=== PATIENT | female | born 1935 | race Caucasian/White ===

== ENCOUNTER → 2019-10-25 14:05 | Outpatient (BNVA) | payer MEDICARE, OTHER, SELFPAY | PROVIDERS: Family Provider Internal Medicine; PCP Internal Medicine; Visit Provider Nurse Practitioner | DX: N39.0 Urinary tract infection, site not specified (principal) | CPT/HCPCS: 81003; 87086 ==

== ENCOUNTER 2021-04-03 10:26 | Outpatient (CLI) | payer MEDICARE, OTHER, SELFPAY ==
--- NOTE | 2021-04-03 10:38 | CT_ITS ---
WS: [id number] CT ABDOMEN PELVIS TECHNIQUE: Noncontrast CT of the abdomen and pelvis with coronal and sagittal reformatted images. CLINICAL INFORMATION: PELVIC PAIN COMPARISON: 09 10,019 DLP: 506.[address] scans at [facility] use at least one of these dose optimization techniques: automat ed exposure control; mA and/or kV adjustment per patient size (includes targeted exams where dose is matched to clinical indication); or iterative reconstruction. FINDINGS: Noncontrast liver is normal. Prior cholecystectomy. Splenic granulomas. Noncontrast spleen is normal. Normal noncontrast pancreas. Subsegmental atelectasis in the lung bases. Adrenal glands are normal. No hydronephrosis in either kidney. No obstructing renal or ureteral calcu li. 1.7 cm stable left renal cyst. Normal caliber abdominal aorta. Aortic calcification. Mild calcifi ed stenosis of the distal abdominal aorta. Normal sigmoid colon. Mild sigmoid diverticulosis. No evidence of acute diverticulitis. A few slightl y prominent loops of fluid-filled small bowel in the pelvis with air-fluid levels. No evidence of hig h-grade obstruction. No free fluid in the pelvis. Colon is decompressed. Prior hysterectomy. CT/CT abdomen pelvis wo con [id number] IMPRESSION: 1. No hydronephrosis in either kidney. No obstructing renal or ureteral calcul i. 2. No free fluid in the abdomen or pelvis. 3. A few slightly prominent loops of fluid-filled small bowel in the pelvis wi th air-fluid levels. No evidence of high-grade obstruction. Colon is decompress ed. 4. Prior cholecystectomy. 5. Stable left renal cyst. 6. Normal caliber abdominal aorta with mild stenosis in the distal abdominal a max. 7. Prior hysterectomy.
[2021-04-03 11:30] LABS: Basophils % 0.6 %; Eosinophils % 0.5 %; Hematocrit 47.7 % (37.0-47.0); Hemoglobin 15.8 g/dL (11.5-15.3); Lymphocytes # 1.7 10^3/uL (0.8-4.8); Lymphocytes % 25.7 %; Mean Corpuscular HGB Conc 33.1 g/dL (30.0-36.0); Mean Corpuscular Hemoglobin 32.2 pg (28.0-34.0); Mean Corpuscular Volume 97.3 fL (81-99); Mean Platelet Volume 9.4 fL (7.4-10.4); Monocytes # 0.4 10^3/uL (0.2-0.9); Monocytes % 6.2 %; Neutrophils # 4.28 10^3/uL (1.8-7.7); Neutrophils % 66.8 %; Nucleated Red Blood Cells % 0 %; Platelet Count 220 10^3/cmm (130-400); Red Cell Distribution Width 12.2 % (12.1-15.1); White Blood Count 6.4 10^3/uL (4.0-10.0)
[2021-04-03 11:46] LABS: Anion Gap 12.1 (5-19); Blood Urea Nitrogen 8 mg/dL (8-23); Calcium 9.4 mg/dL (8.5-10.5); Carbon Dioxide 27 mmol/L (22-29); Chloride 104 mmol/L (98-107); Glucose 105 mg/dL (65-115); Osmolality Calculated 287 mOsm/kg (285-295); Potassium 4.1 mmol/L (3.5-5.1); Sodium 139 mmol/L (136-145)
== END 2021-04-03 10:27 | disposition home or self-care (01) ==
PROVIDERS: PCP Nurse Practitioner; Visit Provider Family Medicine
DX: R10.2 Pelvic and perineal pain (principal); Z90.710 Acquired absence of both cervix and uterus; Q61.01 Congenital single renal cyst; Z90.49 Acquired absence of other specified parts of digestive tract
CPT/HCPCS: 36415; 74176; 80048; 85025

== ENCOUNTER 2021-05-25 12:32 | Emergency (ER) | payer MEDICARE, OTHER, SELFPAY ==
[2021-05-25 12:55] VITALS: BP 165/71; PULSE 62; RESP 20; TEMP 36.5; O2SAT 97; BMI 20.5
[2021-05-25 13:19] LABS: Urine Appearance Clear (CLEAR); Urine Color Yellow (Yellow)
[2021-05-25 13:20] LABS: Add Urine Culture? No; Add Urine Microscopic? YES; Bacteria Urine TRACE /hpf; Bilirubin Urine Neg (Negative); Blood Urine Neg (Negative); Glucose Urine UA Norm (Normal); Ketones Urine Negative (Negative); Leukocyte Esterase Urine Trace (Negative); Nitrate Urine Negative (Negative); Protein Urine Neg (Negative); Squamous Epithelial Cell Urine RARE /hpf (0-5); Sulfosalicylic Acid Urine Negative (Negative); Transitional Epi Cells Urine 0-4 /hpf; Urobilinogen Urine 1 mg/dL (Negative); WBC Urine 0-4 /hpf (0-5); pH Urine 8 (5-7)
--- NOTE | 2021-05-25 14:14 | ECG_ITS ---
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
[2021-05-25 14:15] LABS: Basophils % 0.4 %; Eosinophils % 0.4 %; Hematocrit 41.9 % (37.0-47.0); Hemoglobin 14.3 g/dL (11.5-15.3); Lymphocytes # 1.5 10^3/uL (0.8-4.8); Lymphocytes % 27.3 %; Mean Corpuscular HGB Conc 34.1 g/dL (30.0-36.0); Mean Corpuscular Hemoglobin 32.7 pg (28.0-34.0); Mean Corpuscular Volume 95.9 fl (81-99); Mean Platelet Volume 9.4 fL (7.4-10.4); Monocytes # 0.5 10^3/uL (0.2-0.9); Neutrophils # 3.59 10^3/uL (1.8-7.7); Neutrophils % 63.5 %; Nucleated Red Blood Cells % 0 %; Platelet Count 176 10^3/cmm (130-400); Red Blood Count 4.37 10^6/uL (4.1-5.3); Red Cell Distribution Width 12.3 % (12.1-15.1); White Blood Count 5.6 10^3/uL (4.0-10.0)
--- NOTE | 2021-05-25 14:37 | W.ED.GENADLT ---
HPI - General Adult General: Chief complaint: Nausea/Vomiting/Diarrhea Stated complaint: Nausea, No appetite Time Seen by Provider: 05/25/21 13:32 History of Present Illness: HPI narrative: Patient is an 86-year-old female with history of hypertension, anxiety, depression presenting to the emergency room with nausea/vomiting and decreased appetite over the last week. Per daughter, patient has most not eaten anything over the last week. Daughter ports that patient's depression is not well controlled. Patient tells me that she is endorsing significant sadness this week. Her 2 years ago and patient is still recovering from that. Patient denies any significant suicidal ideation. Denies any diarrhea to me today. Denies any melena hematochezia, chest pain shortness breath, palpitation. Of note, around 10 AM this morning, patient almost passed out because she was feeling lightheaded. No associated chest pain, shortness of breath, palpitation or lightheadedness. Onset:1 week ago Duration:1 week Location:home Severity: moderate Review of Systems Narrative: Constitutional: No fever, no chills. HEENT: No vision changes CV: No chest pain, no palpitations PULM: no cough, no dyspnea. GI: No abdominal pain, +N/+V/-D. +depressed appetite : No dysuria MSKEL: No muscle pain SKIN: No new rashes, no lesions. NEURO: No headache, no focal weakness. HEME: No visible bruises PSYCH: Decreased mood [facility] ED PFSH: Social History (Updated 10/25/19 @ 14:03 by Saritha Rubin LPN) Smoking and tobacco status: never smoked Female Reproductive History: Date of last menstrual period: 11/15/20 Physical Exam Narrative: EXAM NARRATIVE: Head: Atraumatic Eyes: PERRL, conjunctiva without injection ENT: Mucous membrane moist NECK: Supple, ROM intact LUNGS: LCTAB, no crackles/rhonchi CV: RRR ABDOMEN: Soft, nontender in all quadrants EXTREMITY: Normal ROM SKIN: No rash or erythema NEURO: Awake and alert, no focal motor deficits PSYCH: Normal mood and affect Course Vital Signs: Vital signs: Vital Signs Temperature 97.7 F 05/25/21 12:55 Pulse Rate 88 05/25/21 16:36 Respiratory Rate 15 05/25/21 16:36 Blood Pressure 178/88 05/25/21 16:36 Pulse Oximetry 98 05/25/21 16:36 MDM - General Adult MDM Narrative: Medical decision making narrative: 86-year-old female history of depression, anxiety hypertension presents emergency room with an episode of syncopal fall for 7-10 30 this morning the setting of decreased p.o. intake multiple stressors at home. On exam, patient is hemodynamically stable without any focal complaints. Neuro exam grossly intact. Troponin x2 within normal limit. EKG is nonischemic. Patient received IVF, Zofran, was able to tolerate p.o. without any difficulty. Suspect that this lightheadedness episode secondary to dehydration malnutrition. Patient's family reassured me that patient has a counselor for which she is planning to see on Thursday to address the grief that she is experiencing. Disposition: Discharge. Patient is given strict return precaution for any focal signs of weakness, chest pain, short of breath, any more lapses of lightheadedness, or any new or concerning complaints Lab Data: Labs: Lab Results 05/25/21 05/25/21 05/25/21 13:05 14:05 14:05 WBC 5.6 10^3/uL 10^3/ uL (4.0-10.0) RBC 4.37 10^6/uL 10^6 /uL (4.1-5.3) Hgb 14.3 g/dL g/dL (11.5-15.3) Hct 41.9 % % (37.0-47.0) MCV 95.9 fl fl (81-99) MCH 32.7 pg pg (28.0-34.0) MCHC 34.1 g/dL g/dL (30.0-36.0) RDW 12.3 % % (12.1-15.1) Plt Count 176 10^3/cmm 10^3 /cmm (130-400) MPV 9.4 fL fL (7.4-10.4) Neut % (Auto) 63.5 % % Lymph % (Auto) 27.3 % % Vance % (Auto) 8.0 % % Eos % (Auto) 0.4 % % Baso % (Auto) 0.4 % % Neut # (Auto) 3.59 10^3/uL 10^3 /uL (1.8-7.7) Lymph # (Auto) 1.5 10^3/uL 10^3/ uL (0.8-4.8) Vance # (Auto) 0.5 10^3/uL 10^3/ uL (0.2-0.9) Eos # (Auto) 0.0 10^3/uL 10^3/ uL (0.0-0.8) Baso # (Auto) 0.0 10^3/uL 10^3/ uL (0.0-0.1) Nucleated RBC % (a uto) 0 % % Nucleated RBCs # 0.0 /100WBC /100W BC Sodium 137 mmol/L mmol/L (136-145) Potassium 4.1 mmol/L mmol/L (3.5-5.1) Chloride 101 mmol/L mmol/L (98-107) Carbon Dioxide 28 mmol/L mmol/L (22-29) Anion Gap 12.1 (5-19) BUN 9 mg/dL mg/dL (8-23) Creatinine 0.7 mg/dL mg/dL (0.5-0.9) GFR Calculation Not Reportable Glucose 99 mg/dL mg/dL (65-115) Calculated Osmolal ity 283 mOsm/kg L mOs m/kg (285-295) Calcium 9.1 mg/dL mg/dL (8.5-10.5) Total Bilirubin 0.8 mg/dL mg/dL (0.15-1.2) AST 18 U/L U/L (0-32) ALT 14 U/L U/L (0-33) Alkaline Phosphata se 51 IU/L IU/L (35-105) Troponin T Baselin e Troponin T 120 Min nel Delta Troponin T Total Protein 6.6 g/dL g/dL (6.6-8.7) Albumin 3.9 g/dL g/dL (3.5-5.2) Globulin 2.7 g/dL g/dL (1.3-4.6) Lipase 77 U/L H U/L (13-60) Urine Color Yellow (Yellow) Urine Appearance Clear (CLEAR) Urine pH 8 H (5-7) Ur Specific Gravit y 1.010 (1.005-1.030) Urine Protein Neg (Negative) Urine Glucose (UA) Norm (Normal) Urine Ketones Negative (Negative) Urine Blood Neg (Negative) Urine Nitrate Negative (Negative) Urine Bilirubin Neg (Negative) Prot Sulfosalicyli c Acd Negative (Negative) Urine Urobilinogen 1 mg/dL H mg/dL (Negative) Ur Leukocyte Luma ase Trace H (Negative) Urine RBC None /hpf /hpf (0-2) Urine WBC 0-4 /hpf H /hpf (0-5) Ur Squamous Epith Cells Rare /hpf /hpf (0-5) Ur Transition Epit h Cell 0-4 /hpf /hpf Amorphous Sediment Not Reportable Urine Bacteria Trace /hpf /hpf (NONE) 05/25/21 05/25/21 14:05 15:24 WBC RBC Hgb Hct MCV MCH MCHC RDW Plt Count MPV Neut % (Auto) Lymph % (Auto) Vance % (Auto) Eos % (Auto) Baso % (Auto) Neut # (Auto) Lymph # (Auto) Vance # (Auto) Eos # (Auto) Baso # (Auto) Nucleated RBC % (a uto) Nucleated RBCs # Sodium Potassium Chloride Carbon Dioxide Anion Gap BUN Creatinine GFR Calculation Glucose Calculated Osmolal ity Calcium Total Bilirubin AST ALT Alkaline Phosphata se Troponin T Baselin e 7 ng/L ng/L (0-10) Troponin T 120 Min nel 6.93 ng/L ng/L (0-10) Delta Troponin T -0.07 ABS# L ABS# (0-10) Total Protein Albumin Globulin Lipase Urine Color Urine Appearance Urine pH Ur Specific Gravit y Urine Protein Urine Glucose (UA) Urine Ketones Urine Blood Urine Nitrate Urine Bilirubin Prot Sulfosalicyli c Acd Urine Urobilinogen Ur Leukocyte Luma ase Urine RBC Urine WBC Ur Squamous Epith Cells Ur Transition Epit h Cell Amorphous Sediment Urine Bacteria Discharge Plan Discharge Patient Disposition: Home Clinical Impression: Decrease in appetite, Light headedness Condition: Stable Prescriptions: New Zofran 4 mg tablet 4 mg PO TID PRN (Reason: nausea and vomiting) 5 Days Qty: 15 RF: 0 No Action metoprolol tartrate 25 mg tablet 25 mg PO BID RF: 0 lisinopril 10 mg tablet 10 mg PO DAILY RF: 0 alprazolam 1 mg tablet 1 mg PO DAILY RF: 0 pravastatin 40 mg tablet 40 mg PO DAILY RF: 0 aspirin [Adult Aspirin Regimen] 81 mg tablet,delayed release (DR/EC) 81 mg PO DAILY RF: 0 citalopram [Celexa] 20 mg tablet 20 mg PO DAILY RF: 0 omeprazole 20 mg capsule,delayed release(DR/EC) 20 mg PO DAILY RF: 0 Discharge Orders: Discharge ED (Routine); Ordered 05/25/21 Ordered By: Crystal Black Referrals: Alla Unger APN [Primary Care Provider] - Discharge Diet: Advance as tolerated Discharge Activity: Resume usual activity Patient Instructions: Syncope (ED) Activity Restrictions/Additional Instructions: Come back to the emergency room you have any lightheadedness, focal weakness, nausea/vomiting, or any new or concerning complaints. Coding Level of Care Code ED Plastic Surgery Manager for Lisa Skinner
[2021-05-25 14:43] LABS: Alanine Aminotransferase 14 U/L (0-33); Albumin Level 3.9 g/dL (3.5-5.2); Alkaline Phosphatase 51 IU/L (35-105); Anion Gap 12.1 (5-19); Aspartate Amino Transferase 18 U/L (0-32); Blood Urea Nitrogen 9 mg/dL (8-23); Calcium 9.1 mg/dL (8.5-10.5); Carbon Dioxide 28 mmol/L (22-29); Chloride 101 mmol/L (98-107); Creatinine Clr Calc Pharmacy 45.1146; Globulin 2.7 g/dL (1.3-4.6); Glucose 99 mg/dL (65-115); Lipase 77 U/L (13-60); Osmolality Calculated 283 mOsm/kg (285-295); Potassium 4.1 mmol/L (3.5-5.1); Sodium 137 mmol/L (136-145); Total Bilirubin 0.8 mg/dL (0.15-1.2); Total Protein 6.6 g/dL (6.6-8.7)
[2021-05-25 14:58] VITALS: BP 157/53; PULSE 64; RESP 15; O2SAT 96
[2021-05-25 15:07] LABS: Troponin(5th) Baseline 7 ng/L (0-10)
[2021-05-25] MEDS: ondansetron 2 mg/ML SDV 2 mL 4 MG IVP (15:09)
[2021-05-25] MEDS: sodium chloride 0.9% 500 ML IV (15:09)
[2021-05-25 16:00] VITALS: BP 178/88; PULSE 88; RESP 15; O2SAT 98
[2021-05-25 16:09] LABS: Troponin 5 2HR 6.93 ng/L (0-10)
[2021-05-25 16:14] LABS: Troponin 5 2HR Delta -0.07 ABS# (0-10)
--- NOTE | 2021-05-25 16:14 | ECG_ITS ---
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1935 Requested By: Crystal Black Order Number: [id number] Reading MD: MARÍA PALACIOS Measurements Intervals [place] Rate: 60 P: 57 MT: 219 QRS: 28 QRSD: 90 T: 59 QT: 427 QTc: 427 Interpretive Statements SINUS RHYTHM WITH FIRST DEGREE AV BLOCK POSSIBLE LEFT ATRIAL ENLARGEMENT [-0.1mV P-WAVE IN V1/V2] POSSIBLE LEFT VENTRICULAR HYPERTROPHY [VOLTAGE CRITERIA PLUS LAE OR QRS WIDENING] Compared to ECG 05/25/2021 14:30:56 No significant changes Electronically Signed On 05-25-2021 18:26:00 CDT by MARÍA PALACIOS [id number]
[2021-05-25 16:36] VITALS: BP 178/88; PULSE 88; RESP 15; O2SAT 98
== END 2021-05-25 16:37 | disposition home or self-care (01) ==
PROVIDERS: Preventive Medicine Preventive Medicine/Occupational Environmental Medicine; Emergency Provider Emergency Medicine; PCP Nurse Practitioner
DX: R42 Dizziness and giddiness (principal); R63.0 Anorexia; Z79.82 Long term (current) use of aspirin
CPT/HCPCS: 36415; 80053; 81001; 83690; 84484; 85025; 93005; 96361; 96374; 99283; J2405; J7040

== ENCOUNTER 2025-08-20 08:10 | Emergency (ER) | payer MEDICARE, OTHER, SELFPAY ==
[2025-08-20 08:10] VITALS: BP 176/66; PULSE 77; RESP 16; TEMP 37.1; O2SAT 100
--- NOTE | 2025-08-20 08:10 | XRR_ITS ---
PROCEDURE INFORMATION: Exam: XR Right Ribs with PA Chest Exam date and time: 08/20/2025 8:54 AM Age: 89 years old Clinical indication: Painful respiration; Additional info: Fall TECHNIQUE: Imaging protocol: Radiologic exam of the right ribs with PA chest. Views: 3 views COMPARISON: CT abdomen pelvis con [id number] 04/03/2021 10:45 AM FINDINGS: Lungs: There is subtle left apical nodularity or scarring. The lungs are otherwise clear. Pleural spaces: Unremarkable. No pleural effusion. No pneumothorax. Heart/Mediastinum: Unremarkable. No cardiomegaly. Bones/joints: There is generalized osteopenia. There is a fracture of the posterior right 8th rib without significant displacement. XR/XR ribs RT mn 3V w CXR1V [id number] IMPRESSION: 1. Left apical nodularity or scarring. This is indeterminate. Follow-up CT of the chest is recommended. 2. Posterior right 8th nondisplaced rib fracture.
--- NOTE | 2025-08-20 08:13 | ECG_ITS ---
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
--- NOTE | 2025-08-20 08:13 | CTR_ITS ---
PROCEDURE INFORMATION: Exam: CT Head Without Contrast Exam date and time: 08/20/2025 8:51 AM Age: 89 years old Clinical indication: Injury or trauma; Fall; Blunt trauma (contusions or hematomas) TECHNIQUE: Imaging protocol: Computed tomography of the head without contrast. Radiation optimization: All CT scans at this facility use at least one of these dose optimization techniques: automated exposure control; mA and/or kV adjustment per patient size (includes targeted exams where dose is matched to clinical indication); or iterative reconstruction. COMPARISON: No relevant prior studies available. RADIATION DOSE METRICS: Total DLP (mGy-cm): 1005.48 FINDINGS: Brain: There is no intracranial hemorrhage. There is low density periventricular changes present typical of chronic deep white matter microvascular ischemic disease. There is generalized atrophy. There is no shift of midline or localized mass effect. 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 Cerebral ventricles: The ventricles and basal cisterns are within normal limits. Paranasal sinuses: There is mucus and/or fluid within the ethmoid and sphenoid sinuses. Mastoid air cells: Visualized mastoid air cells are well aerated. Bones: Unremarkable. No acute fracture. Soft tissues: Unremarkable. CT/CT head wo con* [id number] IMPRESSION: 1. No acute process 2. 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
--- NOTE | 2025-08-20 08:14 | W.ED.FALL ---
HPI - Fall General: Chief Complaint: General Medical Stated Complaint: right rib pain s/p fall Time Seen by Provider: 08/20/25 08:10 Source: patient and EMS Mode of arrival: EMS Limitations: no limitations History of Present Illness: 10-year-old female states she got up this morning felt slightly dizzy and then fell. She states she had landed on her right side is having some right sided rib pain she is unsure if she did hit her head but denies any loss consciousness. She denies passing out states her pain is currently 3 out of 10 in her right chest. She denies any hip pain she was able to stand after the fall. Related Data Home Medications ?Medication ?Instructions ?Recorded ?Confirmed pravastatin 40 mg tablet 20 mg PO DAILY 10/25/19 08/20/25 alprazolam 0.5 mg tablet 0.25 mg PO Q6H PRN Anxiety 08/20/25 08/20/25 amlodipine 5 mg tablet 5 mg PO BEDTIME 08/20/25 08/20/25 fluoxetine 10 mg capsule 10 mg PO DAILY 08/20/25 08/20/25 lisinopril 30 mg tablet 30 mg PO DAILY 08/20/25 08/20/25 metoprolol tartrate 50 mg tablet 50 mg PO BID 08/20/25 08/20/25 (Lopressor) nitrofurantoin macrocrystal 100 mg 100 mg PO DAILY 08/20/25 08/20/25 capsule sucralfate 1 gram tablet (Carafate) 1 g PO BEDTIME 08/20/25 08/20/25 zolpidem 5 mg tablet 5 mg PO BEDTIME 08/20/25 08/20/25 Previous Rx's ?Medication ?Instructions ?Recorded hydrocodone 5 mg-acetaminophen 325 1 tab PO Q8H PRN pain #14 tabs 08/20/25 mg tablet Allergies Allergy/AdvReac Type Severity Reaction Status Date / Time amoxicillin Allergy ADR-Dizzine Verified 10/25/19 13:55 ss PFSH ED PFSH: Social History (Updated 10/25/19 @ 14:03 by Saritha Rubin LPN) Smoking and tobacco/nicotine status: never used tobacco/nicotine Physical Exam Const: COMMON NORMALS: no acute distress, patient oriented x3 and healthy appearing HENMT: COMMON NORMALS: normocephalic and atraumatic HEAD & SCALP: normocephalic and atraumatic Neck/C-Spine: COMMON NORMALS: full ROM and supple Chest: COMMONS NORMALS: normal inspection of the chest OTHER: right sided chest tenderness Resp: COMMON NORMALS: normal respiratory effort, No retractions, No use of accessory muscles and clear to auscultation bilaterally AUSCULTATION: clear to auscultation bilaterally Cardio: COMMON NORMALS: regular rate, regular rhythm and No murmurs present (Cardio) RATE: regular rate RHYTHM: regular rhythm GI: COMMON NORMALS: Normal to inspection, nondistended, normoactive bowel sounds present, Soft to palpation, non-tender and no masses PALPATION: Yes Soft to palpation Extremity: COMMON NORMALS: normal to inspection and full ROM Neuro: COMMON NORMALS: patient oriented x3, moves all extremities and no focal motor deficits Psych: COMMON NORMALS: mental status grossly normal, Normal thought process present and cooperative THOUGHT PROCESS: Normal thought process present Skin: COMMON NORMALS: no rashes or lesions noted and no wounds GENERAL SKIN EXAM: no rashes or lesions noted Course Vital Signs: Vital signs: Vital Signs Temperature 98.7 F 08/20/25 08:10 Pulse Rate 69 08/20/25 10:04 Respiratory Rate 16 08/20/25 08:10 Blood Pressure 137/59 08/20/25 10:04 Pulse Oximetry 100 08/20/25 10:04 Oxygen Delivery Me thod Room Air 08/20/25 10:04 MDM - Fall Medical Decision Making Patient presents here with some dizziness the fall with right sided rib pain. Differential includes CVA, anemia, rib fracture, pneumothorax. Her head CT and CTA showed no acute abnormalities chest x-ray does show a right eighth rib fracture. Lab work here showed no significant abnormality she has no signs of arrhythmia she has no signs of stroke patient is been able to ambulate here she denies any fevers. Will prescribe her pain meds for home she is stable for discharge return if worsening. EKG interpreted by me at 0945 normal sinus rhythm heart rate [address] elevation QRS 89 QTc 414 Medical Records I reviewed the patient's medical records. Lab Data I reviewed the patient's lab results. 08/20/25 08:24 08/20/25 08:24 Radiology Impressions Ribs X-Ray 08/20/25 08:10 IMPRESSION: 1. Left apical nodularity or scarring. This is indeterminate. Follow-up CT of the chest is recommended. 2. Posterior right 8th nondisplaced rib fracture. Head CT 08/20/25 08:13 IMPRESSION: 1. No acute process 2. 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 Head/Neck CTA 08/20/25 10:23 IMPRESSION: 1. No acute abnormality per CT. MRI follow-up CT, if indicated. 2. 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 The previously described small, densely calcified (burned-out meningioma) over the left convexity is indeterminate. IMPRESSION: 1. 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 2. No dissection, thrombus, or hemodynamically significant stenosis. REFERENCES: NASCET CRITERIA. The degree of stenosis in the cervical segment of the internal carotid artery is based on NASCET criteria. Normal is no stenosis. Mild is less than 50% stenosis. Moderate is 50-69% stenosis. Severe is 70% to 99% stenosis. Total occlusion is no detectable patent lumen. Laboratory Results WBC 9.27 10^3/uL (3.29-11.43) 08/20/25 08:24 RBC 4.38 10^6/uL (3.85-5.65) 08/20/25 08:24 Hgb 14.00 g/dL (11.27-16.99) 08/20/25 08:24 Hct 41.6 % (36-47) 08/20/25 08:24 MCV 95.0 fl (85-98) 08/20/25 08:24 MCH 32.0 pg (27-33) 08/20/25 08:24 MCHC 33.7 g/dL (30-55) 08/20/25 08:24 RDW 12.1 % (12.1-15.1) 08/20/25 08:24 Plt Count 218 10^3/cmm (157-399) 08/20/25 08:24 MPV 9.2 fL (7.4-10.4) 08/20/25 08:24 Neut % (Auto) 68.3 % 08/20/25 08:24 Lymph % (Auto) 23.8 % 08/20/25 08:24 [place] % (Auto) 6.3 % 08/20/25 08:24 Eos % (Auto) 0.5 % 08/20/25 08:24 Baso % (Auto) 0.5 % 08/20/25 08:24 Neut # (Auto) 6.32 10^3/uL (1.8-7.7) 08/20/25 08:24 Lymph # (Auto) 2.2 10^3/uL (0.8-4.8) 08/20/25 08:24 [place] # (Auto) 0.6 10^3/uL (0.2-0.9) 08/20/25 08:24 Eos # (Auto) 0.1 10^3/uL (0.0-0.8) 08/20/25 08:24 Baso # (Auto) 0.1 10^3/uL (0.0-0.1) 08/20/25 08:24 Nucleated RBC % (auto) 0 % 08/20/25 08:24 Nucleated RBCs # 0.0 /100WBC 08/20/25 08:24 Sodium 138 mmol/L (136-145) 08/20/25 08:24 Potassium 3.6 mmol/L (3.5-5.1) 08/20/25 08:24 Chloride 99 mmol/L (98-107) 08/20/25 08:24 Carbon Dioxide 23 mmol/L (22-29) 08/20/25 08:24 Anion Gap 19.6 (5-19) H 08/20/25 08:24 BUN 16 mg/dL (8-23) 08/20/25 08:24 Creatinine 0.7 mg/dL (0.5-0.9) 08/20/25 08:24 GFR Calculation Not Reportable 08/20/25 08:24 Glucose 107 mg/dL (65-115) 08/20/25 08:24 Calculated Osmolality 288 mOsm/kg (285-295) 08/20/25 08:24 Calcium 9.5 mg/dL (8.5-10.5) 08/20/25 08:24 Total Bilirubin 0.7 mg/dL (0.15-1.2) 08/20/25 08:24 AST 19 U/L (0-32) 08/20/25 08:24 ALT 11 U/L (0-33) 08/20/25 08:24 Alkaline Phosphatase 68 U/L (35-105) 08/20/25 08:24 Total Protein 7.4 g/dL (6.6-8.7) 08/20/25 08:24 Albumin 4.0 g/dL (3.5-5.2) 08/20/25 08:24 Globulin 3.4 g/dL (1.3-4.6) 08/20/25 08:24 Urine Color Yellow (Yellow) 08/20/25 08:23 Urine Appearance Clear (CLEAR) 08/20/25 08:23 Urine pH 7.0 (5-7) 08/20/25 08:23 Ur Specific [place] 1.016 (1.005-1.030) 08/20/25 08:23 Urine Protein Negative (Negative) 08/20/25 08:23 Urine Glucose (UA) Negative (Normal) 08/20/25 08:23 Urine Ketones Negative (Negative) 08/20/25 08:23 Urine Blood Negative (Negative) 08/20/25 08:23 Urine Nitrate Negative (Negative) 08/20/25 08:23 Urine Bilirubin Negative (Negative) 08/20/25 08:23 Urine Urobilinogen 0.2 mg/dL (Negative) 08/20/25 08:23 Ur Leukocyte Esterase 2+ (Negative) A 08/20/25 08:23 Urine RBC 0-2 /hpf (0-2) 08/20/25 08:23 Urine WBC 11-20 /hpf (0-5) H 08/20/25 08:23 Ur Squamous Epith Cells 6-10 /hpf (0-5) 08/20/25 08:23 Amorphous Sediment Not Reportable 08/20/25 08:23 Urine Bacteria None seen /hpf (NONE) 08/20/25 08:23 Hyaline Casts 0-4 /lpf H 08/20/25 08:23 All radiology interpretation(s) finalized by discharge Discharge Plan Discharge Patient Disposition: Home Clinical Impression: Fall Right rib fracture Qualifiers: Encounter type: initial encounter Rib fracture type: single rib Fracture type: closed Qualified Code(s): S22.31XA - Fracture of one rib, right side, initial encounter for closed fracture Condition: Stable Prescriptions: New hydrocodone-acetaminophen 5-325 mg tablet 1 tab PO Q8H PRN (Reason: pain) Qty: 14 0RF No Action pravastatin 40 mg tablet 20 mg PO DAILY sucralfate [Carafate] 1 gram tablet 1 g PO BEDTIME amlodipine 5 mg tablet 5 mg PO BEDTIME alprazolam 0.5 mg tablet 0.25 mg PO Q6H PRN (Reason: Anxiety) nitrofurantoin macrocrystal 100 mg capsule 100 mg PO DAILY metoprolol tartrate [Lopressor] 50 mg tablet 50 mg PO BID fluoxetine 10 mg capsule 10 mg PO DAILY lisinopril 30 mg tablet 30 mg PO DAILY zolpidem 5 mg tablet 5 mg PO BEDTIME Discharge Orders: Discharge ED (Routine); Ordered 08/20/25 Ordered By: Kiya Marmolejo Referrals: Alla Unger APN [Primary Care Provider, Family Practice] - 4-7 days Discharge Diet: Advance as tolerated Discharge Activity: Resume usual activity Patient Instructions: Rib Fracture (ED) Print Language: Spanish Coding Level of Care Code ED Animal Care Assistant for Lisa Skinner
--- OUTSIDE RECORDS SUMMARY | 2025-08-20 08:16 | XMS_ITS | Clinical Summary ---
Author Organization [facility] Address [address] [place] [address] HARMEET Mcmahon [address] Phone Care Team Providers Care Travel Information Center Supervisor Name Role Phone Jesus Lin DO Primary Care Provider [phone] Allergies Active Allergy Reactions Criticality Noted Date Comments Ciprofloxacin 06/20/2021 Sulfa (Sulfonamide Antibiotics) Nausea/Vomiting 06/20/2021 Medications FLUoxetine (PROzac) 10 mg capsule 06/10/2021 Active metoprolol tartrate (Lopressor) 50 mg tablet 03/19/2021 Active pantoprazole (ProtoNix) 20 mg EC tablet 05/22/2021 Active pravastatin (Pravachol) 40 mg tablet 05/27/2021 Active lisinopriL (Prinivil, Zestril) 20 mg tablet 05/27/2021 Active zolpidem (Ambien) 5 mg tablet 06/10/2021 Active ALPRAZolam (Xanax) 0.25 mg tablet 05/28/2021 Acti ve cephalexin (Keflex) 500 mg capsule 11/28/2020 Active Social History Tobacco Use Types Packs/Day Years Used Date Smoking Tobacco: Never Alcohol Use Standard Drinks/Week Comments Never 0 (1 standard drink = 0.6 oz pur e alcohol) Comments Unknown Sex and Gender Information Value Date Recorded Sex Assigned at Not on file Legal Sex Female 2:02 PM CDT Gender Identity Not on file Sexual Orientation Not on file Last Filed Vital Signs Vital Sign Reading Time Taken Comments Blood Pressure 182/70 06/20/2021 2:47 PM CDT Pulse 77 06/20/2021 2:47 PM CDT Temperature 36.6 C (97.9 F) 06/20/2021 2:47 PM CDT Respiratory Rate 18 06/20/2021 2:47 PM CDT Oxygen Saturation 98% 06/20/2021 2:47 PM CDT Inhaled Oxygen Concentration - - Weight 51.9 kg (114 lb 6.4 oz) 06/20/2021 2:47 P M CDT Height 162.6 cm (5' 4 ) 06/20/2021 2:47 PM CDT Body Mass Index 19.64 06/20/2021 2:47 PM CDT Plan of Treatment Health Maintenance Due Date Last Done Comments MMR Vaccines (1 of 1 - Stand chaz series) 1938 Varicella Vaccines (1 of 2 - 13+ 2-dose series) 1950 Depression Screening 1955 Social Drivers of Health (SDoH) 1955 Mammogram 1977 Pneumococcal Vaccines: 50+ Y ears (1 of 1 - PCV) 1987 Zoster Vaccines (1 of 2) 1987 Complete Fall Risk Assessment 2002 RSV Vaccines (1 - 1-dose 75+ series) 2012 DTaP,Tdap,and Td Vaccines (2 - Td or Tdap) 06/04/2016 05/07/2016 COVID-19 Vaccines (1 - 2024- season) 2025 Influenza Vaccine (#1) 2025 07/04/2019 HIB Vaccines Aged Out No longer eligi ble based on patient's age to complete this topic HPV Vaccines Aged Out No longer eligi ble based on patient's age to complete this topic Hepatitis A Vaccines Aged Out No long er eligible based on patient's age to complete this topic Hepatitis B Vaccines Aged Out No long er eligible based on patient's age to complete this topic IPV Vaccines Aged Out No longer eligi ble based on patient's age to complete this topic Meningococcal B Vaccine Aged Out No l onger eligible based on patient's age to complete this topic Meningococcal Vaccine Aged Out No irena christina eligible based on patient's age to complete this topic Rotavirus Vaccines Aged Out No longer eligible based on patient's age to complete this topic Insurance MEDICARE [employer] SUPPLEMENT Care Teams Travel Information Center Supervisor Relationship Specialty Start Date End Date Jesus Lin DO [address] [id number] PCP - General Family Medicine 06/20/21
[2025-08-20 08:32] LABS: Hematocrit 41.6 % (36-47); Hemoglobin 14.00 g/dL (11.27-16.99); Mean Corpuscular HGB Conc 33.7 g/dL (30-55); Mean Corpuscular Hemoglobin 32.0 pg (27-33); Mean Corpuscular Volume 95.0 fl (85-98); Nucleated Red Blood Cells % 0 %; Platelet Count 218 10^3/cmm (157-399); Red Blood Count 4.38 10^6/uL (3.85-5.65); White Blood Count 9.27 10^3/uL (3.29-11.43)
[2025-08-20 08:53] LABS: Alanine Aminotransferase 11 U/L (0-33); Albumin Level 4.0 g/dL (3.5-5.2); Alkaline Phosphatase 68 U/L (35-105); Anion Gap 19.6 (5-19); Aspartate Amino Transferase 19 U/L (0-32); Blood Urea Nitrogen 16 mg/dL (8-23); Calcium 9.5 mg/dL (8.5-10.5); Carbon Dioxide 23 mmol/L (22-29); Chloride 99 mmol/L (98-107); Globulin 3.4 g/dL (1.3-4.6); Glucose 107 mg/dL (65-115); Osmolality Calculated 288 mOsm/kg (285-295); Potassium 3.6 mmol/L (3.5-5.1); Sodium 138 mmol/L (136-145); Total Protein 7.4 g/dL (6.6-8.7)
[2025-08-20 10:04] VITALS: BP 137/59; PULSE 69; O2SAT 100
--- NOTE | 2025-08-20 10:23 | CTR_ITS ---
PROCEDURE INFORMATION: Exam: CTA Head With Contrast, Arteriography Exam date and time: 08/20/2025 10:33 AM Age: 89 years old Clinical indication: Vertigo; Additional info: Dizzy TECHNIQUE: Imaging protocol: Computed tomographic angiography of the head with contrast. Exam focused on the arteries. 3D rendering (Not supervised by radiologist): MIP and/or 3D reconstructed images were created by the technologist. Radiation optimization: All CT scans at this facility use at least one of these dose optimization techniques: automated exposure control; mA and/or kV adjustment per patient size (includes targeted exams where dose is matched to clinical indication); or iterative reconstruction. Contrast material: OMNIPAQUE 350; Contrast volume: 90 ml; Contrast route: INTRAVENOUS (IV); COMPARISON: CT head wo con 08/20/2025 8:51 AM RADIATION DOSE METRICS: Total DLP (mGy-cm): 362.16 FINDINGS: ANTERIOR CIRCULATION: Right internal carotid artery: Mild calcification without significant stenosis. Right middle cerebral artery: Unremarkable. Right anterior cerebral artery: Unremarkable. Left internal carotid artery: Mild calcification without significant stenosis. Left middle cerebral artery: Unremarkable. Left anterior cerebral artery: Unremarkable. POSTERIOR CIRCULATION: Right vertebral artery: Mild calcific stenosis. Left vertebral artery: Unremarkable. Basilar artery: Unremarkable. Right posterior cerebral artery: Unremarkable. Left posterior cerebral artery: Unremarkable. 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 A 6 x 5 mm partially calcified, dural-based enhancing mass along the inferior medial left tentorium (coronal 91) was not readily apparent on the noncontrast-enhanced comparison. No hemorrhage or discenible acute infarct. Cerebral ventricles: No hemorrhage or hydrocephalus. Bones/joints: Severe TMJ narrowing. Soft tissues: Unremarkable. PROCEDURE INFORMATION: Exam: CTA Neck With Contrast Exam date and time: 08/20/2025 10:33 AM Age: 89 years old Clinical indication: Vertigo; Additional info: Dizzy TECHNIQUE: Imaging protocol: Computed tomographic angiography of the neck with contrast. Exam focused on the cervical segments of the vasculature. 3D rendering (Not supervised by radiologist): MIP and/or 3D reconstructed images were created by the technologist. Radiation optimization: All CT scans at this facility use at least one of these dose optimization techniques: automated exposure control; mA and/or kV adjustment per patient size (includes targeted exams where dose is matched to clinical indication); or iterative reconstruction. Contrast material: OMNIPAQUE 350; Contrast volume: 90 ml; Contrast route: INTRAVENOUS (IV); COMPARISON: None RADIATION DOSE METRICS: Total DLP (mGy-cm): 362.16 FINDINGS: Right common carotid artery: Minimal distal/bifurcation calcification. Right internal carotid artery: The mid and distal segments have a corrugated contour, but are widely patent. Right external carotid artery: Mild calcification. Left common carotid artery: Minimal calcification by the ostium. Left internal carotid artery: Moderate proximal calcification with less than 50% stenosis. Subtle corrugated contour of the mid and distal segments. Left external carotid artery: Unremarkable. Right vertebral artery: Small calcification by the ostium. Left vertebral artery: Unremarkable. Soft tissues: No concerning lesion. Bones/joints: Advanced spondylosis. No fracture. Lungs: Bronchiectasis, mild scarring, and pleural calcification are noted within the partially imaged lungs. Other findings: Moderate arch and mild brachiocephalic/ subclavian calcification without significant stenosis. CT/CT angio headneck* [id number] IMPRESSION: 1. No acute abnormality per CT. MRI follow-up CT, if indicated. 2. 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 The previously described small, densely calcified (burned-out meningioma) over the left convexity is indeterminate. IMPRESSION: 1. 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 2. No dissection, thrombus, or hemodynamically significant stenosis. REFERENCES: NASCET CRITERIA. The degree of stenosis in the cervical segment of the internal carotid artery is based on NASCET criteria. Normal is no stenosis. Mild is less than 50% stenosis. Moderate is 50-69% stenosis. Severe is 70% to 99% stenosis. Total occlusion is no detectable patent lumen.
[2025-08-20] MEDS: iohexol 350 mg/mL 500 mL Btl (per mL) IV (10:44)
[2025-08-20 11:40] LABS: Glucose Urine UA Negative (Normal); Nitrate Urine Negative (Negative); Specific Gravity, Urine 1.016 (1.005-1.030)
[2025-08-20 11:45] LABS: Add Urine Microscopic? YES
[2025-08-20 12:40] VITALS: BP 147/58; PULSE 70; O2SAT 99
== END 2025-08-20 12:41 | disposition home or self-care (01) ==
PROVIDERS: Emergency Provider Emergency Medicine; PCP Nurse Practitioner
DX: S22.31XA Fracture of one rib, right side, initial encounter for closed fracture (principal); W19.XXXA Unspecified fall, initial encounter
CPT/HCPCS: 36415; 70450; 70496; 70498; 71101; 80053; 81001; 85025; 87086; 93005; 99285; J8597